=== PATIENT | male | born 1955 | race Caucasian/White ===

== ENCOUNTER 2017-05-23 19:29 | Emergency (ER) | payer OTHER ==
[2017-05-23 19:52] VITALS: TEMP 97.7; BMI 15.7
--- NOTE | 2017-05-23 20:13 | PDOC ---
History of Present Illness - General History Source: Patient Exam Limitations: No Limitations - History of Present Illness Initial Comments: 05/23/17 20:51 The patient is a 61 year old male with significant past medical history of R lung CA (currently on chemo, last session was last week) who presents to the ED for few days of chest discomfort and SOB. Patient reports he had his lung cavity drained a few days ago, which he normally feels relief and when it fills up with fluid again he starts to feel congested and short of breath. He also has complaints of a dry cough. States he endorses chest discomfort when he coughs. Patient describes his chest discomfort as initially rib cage pain, which he describes as muscle spasms in nature. Now his chest discomfort has become more anterior, which he never had before. He also reports his chest discomfort worsens with deep inspiration. Denies lightheadedness, diaphoresis, palpitations, jaw pain, shoulder pain, arm pain, leg swelling, nausea, or vomiting. Denies fever or chills. Denies any additional weight loss, abdominal pain, or diarrhea. States his last PMD was Dr. Hunt, who he has not seen in quite some time. Allergies: NKDA Social History: Long history of tobacco use for several years, quit smoking 6 months ago. No alcohol or drug use reported. Past Surgical History: s/p thoracentesis PCP: Dr. Shirley Hunt (states he has not been seen by Dr. 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 [facility] <Reshma Payne - Last Filed: 05/23/17 20:51> - General History Source: Patient <Ned King - Last Filed: 05/24/17 19:28> - General Chief Complaint: Chest Pain Stated Complaint: CHEST PAIN Time Seen by Provider: 05/23/17 20:06 Past History <Reshma Payne - Last Filed: 05/23/17 20:51> - Past Medical History Cancer: Yes (R lung ()) - Immunization History Td Vaccination: Yes - Psycho/Social/Smoking Cessation Hx Anxiety: No Suicidal Ideation: No Smoking Status: Yes Smoking History: Never smoked Have you smoked in the past 12 months: Yes Number of Cigarettes Smoked Daily: 0 If you are a former smoker, when did you quit?: 6 months ago Information on smoking cessation initiated: No 'Breaking Loose' booklet given: 07/09/14 Hx Alcohol Use: No Drug/Substance Use Hx: No Substance Use Type: None <Ned King - Last Filed: 05/24/17 19:28> - Past Medical History Allergies/Adverse Reactions: Allergies Allergy/AdvReac Type Severity Reaction Status Date / Time No Known Allergies Allergy Verified 05/23/17 20:51 Home Medications: Ambulatory Orders Albuterol Sulfate Inhaler - [Ventolin Hfa Inhaler -] 1 - 2 inh PO Q4H PRN Amox-Tr/K Cl [Augmentin 500Mg Tablet] 1 tab PO BID #14 tablet 05/23/17 Ascorbic Acid [Vitamin C -] 500 mg PO BID 05/23/17 Budesonide/Formeterol Fumarate [SYMBICORT 160/4.5mcg -] 1 inh PO BID 05/23/17 Methocarbamol [Robaxin -] 500 mg PO TID #30 tablet 05/23/17 Oxycodone HCl/Acetaminophen [Percocet 5-325 mg Tablet] 1 - 2 tab PO Q6H #20 tablet MDD 4 05/23/17 Zinc Sulfate [Zinc-220] 220 mg PO DAILY 05/23/17 Review of Systems - Review of Systems Able to Perform ROS?: Yes Comments:: 05/23/17 20:51 CONSTITUTIONAL: Absent: fever, chills, diaphoresis, generalized weakness, malaise, loss of appetite HEENT: Absent: rhinorrhea, nasal congestion, throat pain, throat swelling, difficulty swallowing, mouth swelling, ear pain, eye pain, visual Changes CARDIOVASCULAR: +chest discomfort Absent: syncope, palpitations, irregular heart rate, lightheadedness, peripheral edema RESPIRATORY: +dry cough, shortness of breath Absent: dyspnea with exertion, orthopnea, wheezing, stridor, hemoptysis GASTROINTESTINAL: Absent: abdominal pain, abdominal distension, nausea, vomiting, diarrhea, constipation, melena, hematochezia GENITOURINARY: Absent: dysuria, frequency, urgency, hesitancy, hematuria, flank pain, genital pain MUSCULOSKELETAL: Absent: myalgia, arthralgia, joint swelling SKIN: Absent: rash, itching, pallor HEMATOLOGIC/IMMUNOLOGIC: Absent: easy bleeding, easy bruising, lymphadenopathy, frequent infections ENDOCRINE: Absent: unexplained weight gain, unexplained weight loss, heat intolerance, cold intolerance NEUROLOGIC: Absent: headache, focal weakness or paresthesias, dizziness, unsteady gait, seizure, mental status changes, bladder or bowel incontinence <Reshma Payne - Last Filed: 05/23/17 20:51> *Physical Exam - Vital Signs Last Vital Signs Temp Pulse Resp BP Pulse Ox 97.7 F 89 20 122/66 99 05/23/17 19:47 05/23/17 19:47 05/23/17 19:47 05/23/17 19:47 05/23/17 19:47 - Physical Exam Comments: 05/23/17 20:51 GENERAL: Thin and fraile. Awake and alert. No acute distress. HEENT: Normocephalic, atraumatic. PERRLA, EOMI. No conjunctival pallor. Sclera are non- icteric. Moist mucous membranes. Oropharynx is clear. NECK: Supple. Full ROM. No JVD. Carotid pulses 2+ and symmetric, without bruits. No thyromegaly. No lymphadenopathy. CARDIOVASCULAR: Tachycardia. Regular rhythm. No murmurs, rubs, or gallops. Distal pulses are 2+ and symmetric. Clean and dry intact bandage over the lower lateral intercostal region (where he states he last had fluid drained) with no surrounding erythema and nontender. PULMONARY: Mild respiratory distress. Diminished breath sounds bilaterally, right greater than the left. No wheezing, rales or rhonchi. No conversational dyspnea. No retractions. ABDOMINAL: Soft. Non-tender. Non-distended. No rebound or guarding. No organomegaly. Normoactive bowel sounds. MUSCULOSKELETAL Normal range of motion at all joints. No bony deformities or tenderness. No CVA tenderness. EXTREMITIES: No cyanosis. No clubbing. No edema. No calf tenderness. SKIN: Warm and dry. Normal capillary refill. No rashes. No jaundice. NEUROLOGICAL: Alert, awake, appropriate. Cranial nerves 2-12 intact. No gross neurological deficits. <Reshma Payne - Last Filed: 05/23/17 20:51> - Vital Signs Last Vital Signs Temp Pulse Resp BP Pulse Ox 97.7 F 89 20 122/66 99 05/23/17 19:47 05/23/17 19:47 05/23/17 19:47 05/23/17 19:47 05/23/17 19:47 <Ned King - Last Filed: 05/24/17 19:28> ED Treatment Course - LABORATORY CBC & Chemistry Diagram: 05/23/17 20:45 05/23/17 20:45 <Ned King - Last Filed: 05/24/17 19:28> Medical Decision Making - Medical Decision Making 05/24/17 19:26 Dr. King: The scribe's documentation has been prepared under my direction and personally reviewed by me in its entirery. I confirm that the note above accurately reflects all work, treatment, procedures, and medical decision making performed by me. <Ned King - Last Filed: 05/24/17 19:28> *DC/Admit/Observation/Transfer - Attestations Scribe Attestion: 05/23/17 20:51 Documentation prepared by Reshma Payne, acting as medical pathologist for Ned King DO. <Reshma Payne - Last Filed: 05/23/17 20:51> - Discharge Dispostion Admit: No <Ned King - Last Filed: 05/24/17 19:28> Diagnosis at time of Disposition: Pneumonia Qualifiers: Pneumonia type: due to unspecified organism Laterality: right Lung location: upper lobe of lung Qualified Code(s): J18.1 - Lobar pneumonia, unspecified organism - Discharge Dispostion Disposition: HOME - Prescriptions Prescriptions: Amox-Tr/K Cl [Augmentin 500Mg Tablet] 1 tab PO BID #14 tablet Oxycodone HCl/Acetaminophen [Percocet 5-325 mg Tablet] 1 - 2 tab PO Q6H #20 tablet MDD 4 Methocarbamol [Robaxin -] 500 mg PO TID #30 tablet - Patient Instructions Printed Discharge Instructions: DI for Pneumonia -- Adult Additional Instructions: please follow up with your doctor as soon as possible for re-evaluation. Take medications as directed.
[2017-05-23 20:54] LABS: BASOPHIL 0.4 % (0-2.0); EOSINOPHIL 0.4 % (0-4.5); MCH 33.9 pg (25.7-33.7); MCHC 33.9 g/dl (32.0-35.9); MEAN PLT VOLUME 7.5 fl (7.5-11.1); NEUTROPHILS 81.2 % (42.8-82.8); PLATELET COUNT 119 K/MM3 (134-434); RDW 20.1 % (11.9-15.9); WHITE BLOOD COUNT 4.7 K/mm3 (4.0-10.0)
[2017-05-23 21:18] LABS: ANION GAP 10 (8-16); BILIRUBIN,TOTAL 0.2 mg/dL (0.2-1.0); CALCIUM 8.5 mg/dL (8.5-10.1); CO2 26 mmol/L (21-32); CPK 77 IU/L (39-308); GLUCOSE,RANDOM 97 mg/dL (74-106); MAGNESIUM 1.9 mg/dL (1.8-2.4); SGOT/AST 19 U/L (15-37); SGPT/ALT 15 U/L (12-78); TOT PROT 6.7 g/dl (6.4-8.2)
[2017-05-23 21:21] LABS: ALK PHOS 74 U/L (45-117); TROPONIN I < 0.02 ng/ml (0.00-0.05)
[2017-05-23 21:23] LABS: INR 1.15 (0.82-1.09); PROTHROMBIN TIME (PATIENT) 12.7 SEC (9.98-11.88)
[2017-05-23] MEDS ORDERED: ONDANSETRON 4 MG/2 ML VIAL ONE (21:34)
[2017-05-23] MEDS ORDERED: PANTOPRAZOLE 40 MG TABLET (FP) ONE (21:34)
[2017-05-23] MEDS ORDERED: morphine CARPU-JECT 2 MG/1 ML DISP.SYRIN ONE (21:34)
[2017-05-23] MEDS ORDERED: ONDANSETRON 4 MG/2 ML VIAL IVPUSH ONE (21:41)
[2017-05-23] MEDS ORDERED: morphine CARPU-JECT 10 MG/1 ML DISP.SYRIN IVPUSH ONE (21:44)
[2017-05-23] MEDS ORDERED: morphine CARPU-JECT 2 MG/1 ML DISP.SYRIN IVPUSH ONE (21:46)
[2017-05-23 22:35] VITALS: PULSE 83
[2017-05-23] MEDS ORDERED: CEFTRIAXONE 50 ML ONE (22:48)
[2017-05-23] MEDS ORDERED: METHOCARBAMOL 500 MG TABLET PO ONE (22:48)
[2017-05-23] MEDS ORDERED: METHOCARBAMOL 500 MG TABLET ONE (22:59)
[2017-05-23 23:30] VITALS: BP 109/69
--- NOTE | 2017-05-24 16:18 | EKG ---
Test Reason : Blood Pressure : / mmHG Vent. Rate : 085 BPM Atrial Rate : 085 BPM P-R Int : 140 ms QRS Dur : 084 ms QT Int : 352 ms P-R-T Axes : 079 254 077 degrees QTc Int : 418 ms POOR DATA QUALITY, INTERPRETATION MAY BE ADVERSELY AFFECTED NORMAL SINUS RHYTHM ANTEROLATERAL INFARCT , AGE UNDETERMINED ABNORMAL ECG NO PREVIOUS ECGS AVAILABLE Confirmed by GREY WATSON MD ([id number]) on 05/24/2017 4:18:09 PM Referred By: Confirmed By:GREY WATSON MD
== END 2017-05-23 23:30 | disposition home or self-care (01) ==
LOC: JER 19:29
PROC: 3E033NZ Introduction of Analgesics, Hypnotics, Sedatives into Peripheral Vein, Percutaneous Approach (ICD-10-PCS; principal; 2017-05-23)
PROC: 3E033NZ Introduction of Analgesics, Hypnotics, Sedatives into Peripheral Vein, Percutaneous Approach (ICD-10-PCS; 2017-05-23)
PROC: 3E033NZ Introduction of Analgesics, Hypnotics, Sedatives into Peripheral Vein, Percutaneous Approach (ICD-10-PCS; 2017-05-23)
PROC: 3E033GC Introduction of Other Therapeutic Substance into Peripheral Vein, Percutaneous Approach (ICD-10-PCS; 2017-05-23)
DX: J18.1 Lobar pneumonia, unspecified organism (principal); C34.91 Malignant neoplasm of unspecified part of right bronchus or lung
CPT/HCPCS: 71020-TC; 80053; 83690; 83735; 83880; 84484; 85025; 85610; 86850; 86900; 86901; 87040; 93005; 93010; 96374; 96375; 99283-25

== ENCOUNTER 2018-05-05 15:15 | Emergency (ER) | payer OTHER ==
[2018-05-05 15:51] VITALS: BMI 14.6
--- NOTE | 2018-05-05 16:09 | PDOC ---
History of Present Illness - General Chief Complaint: Shortness of Breath Stated Complaint: DIFFICULTY BREATHING Time Seen by Provider: 05/05/18 16:09 History Source: Patient, Family - History of Present Illness Initial Comments: 05/05/18 16:23 62M with a history of end stage lung Ca. he does not know what type but as of a 2 months ago his doctors stopped treatment and placed him under hospice care. The patient is with his girlfriend and his sister. He states he has been short of breath like this for the past few months. He denies nausea vomiting fever chills chest pain urinary or GI symptoms. He endorses loss of appetite and not being able to get around the house anymore. The patient would like to remain on hospice care as of now. He has not seen his PMD in over 2 years. He has a right pleural catheter that was placed 2 years ago for recurrent pleural effusions and is drained very week. Past History - Past Medical History Allergies/Adverse Reactions: Allergies Allergy/AdvReac Type Severity Reaction Status Date / Time No Known Allergies Allergy Verified 05/05/18 15:33 Home Medications: Ambulatory Orders Albuterol Sulfate Inhaler - [Ventolin Hfa Inhaler -] 1 - 2 inh PO Q4H PRN Budesonide/Formeterol Fumarate [SYMBICORT 160/4.5mcg -] 1 inh PO BID 05/23/17 Vitamin D3/Folic Acid [Roxifol-D Tablet] 500 unit PO DAILY 05/05/18 Cancer: Yes (R lung () end stage off treatment now ) COPD: No Lung CA: Yes - Surgical History Lung Surgery: Yes (right lung chest tube for past 2 years- recurrent effusion drained q week) - Immunization History Td Vaccination: Yes - Suicide/Smoking/Psychosocial Hx Smoking Status: Yes Smoking History: Current every day smoker Have you smoked in the past 12 months: Yes Number of Cigarettes Smoked Daily: 20 If you are a former smoker, when did you quit?: 6 months ago Information on smoking cessation initiated: No 'Breaking Loose' booklet given: 07/09/14 Hx Alcohol Use: No Drug/Substance Use Hx: No Substance Use Type: None Review of Systems - Review of Systems Able to Perform ROS?: Yes Constitutional: Yes: Unintentional Wgt. Loss. No: Chills, Diaphoresis, Fever HEENTM: No: Symptoms Reported, See HPI, Eye Pain, Blurred Vision, Tearing, Recent change in vision, Double Vision, Cataracts, Ear Pain, Ocular Prothesis, Ear Discharge, Nose Pain, Nose Congestion, Tinnitus, Nose Bleeding, Hearing Loss , Throat Pain, Throat Swelling, Mouth Pain, Dental Problems, Difficulty Swallowing, Mouth Swelling, Other Respiratory: Yes: Shortness of Breath, SOB with Exertion, SOB at Rest Cardiac (ROS): Yes: Chest Pain ABD/GI: Yes: Poor Appetite. No: Nausea : No: Symptoms Reported, See HPI, Burning, Dysuria, Discharge, Frequency, Flank Pain, Hematuria, Incontinence, Pain, Urgency, Testicular Mass, Testicular Swelling, Lesions, Testicular Pain, Other Musculoskeletal: Yes: Muscle Weakness Integumentary: No: Symptoms Reported, See HPI, Bruising, Change in Color, Change in Hair/Nails, Dryness, Erythema, Flushing, Lesions, Lumps, Pallor, Pruritus, Rash, Sweating, Other Neurological: No: Symptoms reported, See HPI, Headache, Numbness, Paresthesia, Pre-Existing Deficit, Seizure, Tingling, Tremors, Weakness, Unsteady Gait, Ataxia, Dizziness, Other Psychiatric: No: Anxiety, Depression, Frequent Crying, Stressors, Sleep Pattern Change, Emotional Problems, Mood Swings, Change in Appetite, Other Endocrine: No: Symptoms Reported, See HPI, Excessive Sweating, Flushing, Intolerance to Cold, Intolerance to Heat, Increased Hunger, Increased Thirst, Increased Urine, Unexplained Weight Gain, Unexplained Weight Loss, Change in Weight, Other Hematologic/Lymphatic: No: Symptoms Reported, See HPI, Anemia, Blood Clots, Easy Bleeding, Easy Bruising, Bleeding Diathesis, Lymph Node Abnormalities, Swollen Glands, Other *Physical Exam - Vital Signs Last Vital Signs Temp Pulse Resp BP Pulse Ox 97.3 F L 76 18 125/85 99 05/05/18 15:48 05/05/18 15:48 05/05/18 15:48 05/05/18 15:48 05/05/18 15:48 - Physical Exam General Appearance: Yes: Cachetic, Thin. No: Apparent Distress Neck: positive: Trachea midline Respiratory/Chest: positive: Other (decreased b reath sounds on right when compared to left. crackles R>L. Right sided pleurx catheter in place with mild erythema around tube insertion site) Gastrointestinal/Abdominal: positive: Soft Musculoskeletal: negative: CVA Tenderness Integumentary: positive: Dry Neurologic: positive: Fully Oriented, Alert Medical Decision Making - Medical Decision Making 05/05/18 17:00 Patient's girlfriend endorses the patient has chest pain. Hospice nurse called and patient did not inform them he was going to the hospital. This provider informed that his hospice benefits may be revoked if he has any diagnostic studies done. Hospice nurse to call patient's niece who is his health care proxy and she resides in [place]. Patient would like to hold off on any diagnostic studies at this time until he hears updates from hospice nurse. 05/05/18 17:43 Rachel Bardales who is his niece and his health car proxy per patient and hospice nurse called the ER and stated the patient is able to call a nurse to get morphine and ativan as needed for anxiety and pain. She does not want him to have any diagnostic testing such as EKG and troponin. Will drain Pleurx catheter. 05/05/18 18:14 400ml of serosangenous fluid drained from right pleurx catheter using a pleuryx cannister. Dressing and new sterile cap applied. This was done under sterile conditions patient for discharge and hospice nurse to come tomorrow and drain more fluid *DC/Admit/Observation/Transfer Diagnosis at time of Disposition: Lung cancer Qualifiers: Laterality: right Lung location: unspecified part of lung Qualified Code(s): C34.91 - Malignant neoplasm of unspecified part of right bronchus or lung - Discharge Dispostion Disposition: HOME Condition at time of disposition: Guarded Decision to Admit order: No - Referrals - Patient Instructions Printed Discharge Instructions: DI for Shortness of Breath, How to Manage Shortness of Breath Additional Instructions: If you have any worsening of your shortness of breath or any anxiety or any symptoms at all please call your hospice nurse before going to the hospital. It was a pleasure taking care of you - Post Discharge Activity
[2018-05-05 16:36] VITALS: PULSE 71; TEMP 98.4
--- NOTE | 2018-05-05 17:42 | PDOC ---
Attending Attestation - Resident Resident Name: Dyllan Reyes - ED Attending Attestation I have performed the following: I have examined & evaluated the patient, The case was reviewed & discussed with the resident, I agree w/resident's findings & plan, Exceptions are as noted - HPI HPI: 05/05/18 18:13 62-year-old male presents with his sister with chief complaint of shortness of breath. Past medical history significant for end-stage lung cancer on hospice Patient states that he feels short of breath. However, his vital signs are all stable. He is not hypoxic. - Physicial Exam PE: 05/05/18 18:14 Cachectic 62-year-old male who feels dyspneic. Head normocephalic/atraumatic eyes eomi neck supple lungs decreased BS on rt,crackles cvs [id number] abd nonrtender torso rt anterior chest has port for thoracentesis extremitie no edema neuro alert and conversant psych sl anxious 05/05/18 18:22 05/05/18 18:25 - Medical Decision Making 05/05/18 18:23 Patient's vital signs are stable. We did speak to his hospice nurse While in the ER, Dr Reyes removed 400 cc from his pleurix catheter and the plan is to discharge him home. He will be followed up in the morning by his hospice nurse 05/05/18 18:26 IMP end stage lung cancer/hospice care/thoracentesis
[2018-05-05 19:03] VITALS: BP 114/78
--- NOTE | 2018-05-07 16:28 | EKG ---
Test Reason : Blood Pressure : / mmHG Vent. Rate : 068 BPM Atrial Rate : 068 BPM P-R Int : 142 ms QRS Dur : 086 ms QT Int : 392 ms P-R-T Axes : 082 072 074 degrees QTc Int : 416 ms NORMAL SINUS RHYTHM LOW VOLTAGE QRS POSSIBLE ANTEROLATERAL INFARCT (CITED ON OR BEFORE 23-MAY-2017) ABNORMAL ECG WHEN COMPARED WITH ECG OF 23-MAY-2017 19:45, QRS AXIS SHIFTED RIGHT QUESTIONABLE CHANGE IN INITIAL FORCES OF LATERAL LEADS Confirmed by Rolly Petty MD ([id number]) on 05/07/2018 4:27:33 PM Referred By: Confirmed By:Rolly Petty MD
== END 2018-05-05 19:05 | disposition home or self-care (01) ==
LOC: JER 15:15
DX: C34.91 Malignant neoplasm of unspecified part of right bronchus or lung (principal); F17.210 Nicotine dependence, cigarettes, uncomplicated
CPT/HCPCS: 93005; 93010; 99283-25